=== PATIENT | male | born 1975 | race Two or more races ===

== ENCOUNTER 2016-08-16 15:35 | Emergency (ER) | payer OTHER | END 2016-08-16 17:11 | disposition home or self-care (01) | LOC: ED 15:35 | DX: S29.012A Strain of muscle and tendon of back wall of thorax, initial encounter (principal); V49.40XA Driver injured in collision with unspecified motor vehicles in traffic accident, initial encounter; Y92.410 Unspecified street and highway as the place of occurrence of the external cause ==

== ENCOUNTER 2016-09-13 08:57 | Emergency (ER) | payer OTHER ==
[2016-09-13] MEDS ORDERED: MECLIZINE HCL 25 MG TABLET ONE (10:27)
== END 2016-09-13 11:00 | disposition home or self-care (01) ==
LOC: ED 08:57
DX: H81.13 Benign paroxysmal vertigo, bilateral (principal); F17.210 Nicotine dependence, cigarettes, uncomplicated
CPT/HCPCS: 99282; 99283; A9270